=== PATIENT | female | born 1995 | race Caucasian/White ===

== ENCOUNTER → 2024-06-07 | Outpatient (CLI) | payer OTHER ==
[2024-06-07 12:15] VITALS: TEMP 97.5
[2024-06-07 15:00] VITALS: BP 112/67; O2SAT 100
== END ==
LOC: M IRPRO 12:06
PROVIDERS: ATTEND Psychiatry & Neurology Neurology
DX: G35 Multiple sclerosis (principal)

== ENCOUNTER 2024-06-13 20:50 | Emergency (ER) | payer OTHER ==
[~2024-06-13] VITALS: Ht 165.1 cm; Wt 65.9 kg
[2024-06-13] MEDS ORDERED: IBUP80TA PO (21:35)
[2024-06-13 22:03] LABS: BASO # 0.1 10^3/uL (0.0-0.2); BASO % 0.6 % (0.0-1.0); EOS # 0.1 10^3/uL (0.0-0.5); EOS % 1.5 % (0.0-3.0); HEMOGLOBIN 13.4 g/dl (12.0-15.5); LYMPH # 1.8 10^3/uL (1.5-5.0); LYMPH % 21.1 % (24.0-44.0); MEAN CORPUSCULAR HEMOGLOBIN 30.5 pg (27.0-33.0); MEAN CORPUSCULAR HGB CONC 32.7 g/dl (32.0-36.5); MEAN CORPUSCULAR VOLUME 93.2 fl (80.0-96.0); MONO # 0.5 10^3/uL (0.0-0.8); MONO % 6.4 % (2.0-8.0); NEUTROPHILS % 70.2 % (36.0-66.0); PLATELET COUNT, AUTOMATED 257 10^3/uL (150-450); WHITE BLOOD COUNT 8.5 10^3/uL (4.0-10.0)
[2024-06-13 22:07] LABS: ERYTHROCYTE SEDIMENTATION RATE 4 mm/hr (0-20)
[2024-06-13 22:27] LABS: C REACTIVE PROTEIN QUANTITATIV < 0.40 MG/DL (<1.0)
[2024-06-13 22:28] LABS: BLOOD UREA NITROGEN 20 MG/DL (9-23); CALCIUM LEVEL 9.2 MG/DL (8.5-10.1); CARBON DIOXIDE LEVEL 26 MMOL/L (20-31); CHLORIDE LEVEL 107 MMOL/L (98-107); CREATININE FOR GFR 0.73 MG/DL (0.55-1.30); GLOMERULAR FILTRATION RATE > 60.0 (>60); GLUCOSE, FASTING 96 MG/DL (60-100); POTASSIUM SERUM 3.9 MMOL/L (3.5-5.1); SODIUM LEVEL 140 MMOL/L (136-145)
[2024-06-13] MEDS ORDERED: PROHANCE 279.3MG/ML 15ML VIAL As Ordered ONE (23:16)
[2024-06-14] MEDS: ACETAMINOPHEN 325 MG TAB PO ONE (00:35)
[2024-06-14] MEDS ORDERED: IBUP-1022 PO (01:20)
[2024-06-14 01:28] VITALS: BP 105/61; TEMP 97.6; O2SAT 99
== END 2024-06-14 01:30 | disposition home or self-care (01) ==
LOC: M ED 20:50
DX: M54.50 Low back pain, unspecified (principal); R20.2 Paresthesia of skin; R55 Syncope and collapse
CPT/HCPCS: 36415; 72158; 80048; 85025; 85652; 86140; 87040; 87486; 87581; 87633; 87798; 99284; A9576

== ENCOUNTER → 2025-02-25 | Outpatient (CLI) | payer OTHER ==
[~2025-02-25] MED LIST: IBUP-1022 PO; IBUP80TA PO
== END ==
LOC: M RAD 11:59
DX: I83.813 Varicose veins of bilateral lower extremities with pain (principal)

== ENCOUNTER → 2025-04-14 | Outpatient (CLI) | payer OTHER ==
[~2025-04-14] MED LIST changes: -IBUP-1022 PO; +IBUP600T42 PO
== END ==
LOC: M CARPUL 07:55
DX: J42 Unspecified chronic bronchitis (principal)